=== PATIENT | female | born 1960 | race Caucasian/White ===

== ENCOUNTER 2017-09-14 08:03 | Emergency (ER) | payer OTHER ==
[~2017-09-14] VITALS: Ht 162.6 cm; Wt 72.6 kg
[~2017-09-14 08:03] MED LIST: ANIMAL CHEWS1 EACH; ANTIVERT 12.512.5 MG PO; BENTYL10 M1 PO; BENTYL20 M1 PO; CARAFATE1 GM/10 M1 PO; NEXIUM20 M1; ZOFRAN ODT4 M1 PO
--- NOTE | 2017-09-14 08:37 | ED GI/GU/ABDOMINAL COMPLAINT ---
History of Present Illness General Chief Complaint: General Adult Stated Complaint: MULTIPLE COMPLAINTS Source: patient Exam Limitations: language barrier Vital Signs & Intake/Output Vital Signs & Intake/Output Vital Signs Date Time Temp Pulse Resp B/P B/P Pulse O2 O2 Flow FiO2 Mean Ox Delivery Rate 09/14 1353 98.2 80 15 154/80 98 Room Air Room Air 09/14 1158 98.4 95 18 184/78 96 09/14 1006 84 18 163/83 99 Room Air 09/14 0856 Room Air Room Air 09/14 0807 96.0 98 20 167/100 100 Room Air Allergies Coded Allergies: acetaminophen (From TYLENOL-CODEINE) (UNKNOWN 08/15/15) codeine (From TYLENOL-CODEINE) (UNKNOWN 08/15/15) Reconcile Medications Dicyclomine Hydrochloride (Bentyl) 10 MG CAPSULE 1 CAP PO TID PRN SPASM Esomeprazole (Nexium) 40 MG CAPSULE.DR 1 CAP PO DAILY acid reflux Esomeprazole Magnesium (Nexium) (Unknown Strength) CAPSULE.DR (Unknown Dose) UNKNOWN (Reported) Multivitamin (Animal Chews) (Unknown Strength) TAB.CHEW (Unknown Dose) SUPP ( Reported) Ondansetron (Zofran Odt) 4 MG TAB.RAPDIS 1 TAB PO Q6 PRN NAUSEA Sucralfate (Carafate) 1 GM/10 ML ORAL.SUSP 10 ML PO 4 TIMES/DAY GASTRITIS 1 hour before food and bedtime Triage Note: PT TO ED C/O ANXIETY AND ABD PAIN X A FEW DAYS. C/O NAUSEA, DENIES V/D. STATES "FEEL SHAKY INSIDE". Triage Nurses Notes Reviewed? yes ? n Is pt currently ? No Onset: Abrupt Duration: day(s): (4), constant Timing: recent history Location: epigastric Radiation: no radiation Activities at Onset: none HPI: 57-year-old female comes into the emergency room for further evaluation with multiple complaints. Patient reports that she's been experiencing some epigastric discomfort. Some belching and burping. Pain radiates into her chest. She also reports some associated shortness of breath and feeling faint. She denies any vomiting fever chills cough congestion runny nose. She denies any urinary symptoms such as dysuria or increased frequency. She denies any changes in bowel movement. 2 prior C-sections and hernia repair. Nothing seems to make the symptoms better or worse. (Jarrell Will) Past History Travel History Traveled to [place] past 21 day No Medical History Any Pertinent Medical History? see below for history Gastrointestinal: GERD Psychiatric: anxiety Surgical History Surgical History: hernia repair-umbilical, VENTRAL HERNIA Psychosocial History What is your primary language Greenlandic Tobacco Use: Never used ETOH Use: denies use Illicit Drug Use: denies illicit drug use Family History Hx Contributory? No (Jarrell Will) Review of Systems Review of Systems Constitutional: Reports: see HPI. EENTM: Reports: no symptoms. Respiratory: Reports: see HPI. Cardiovascular: Reports: see HPI. GI: Reports: see HPI. Genitourinary: Reports: no symptoms. Musculoskeletal: Reports: no symptoms. Skin: Reports: no symptoms. Neurological/Psychological: Reports: no symptoms. Hematologic/Endocrine: Reports: no symptoms. Immunologic/Allergic: Reports: no symptoms. All Other Systems: Reviewed and Negative (Jarrell Will) Physical Exam Physical Exam General Appearance: well developed/nourished, alert, awake, mild distress Head: atraumatic Eyes: Bilateral: normal appearance. Ears, Nose, Throat, Mouth: hearing grossly normal, moist mucous membrane Neck: normal inspection Respiratory: no respiratory distress Cardiovascular: regular rate/rhythm Gastrointestinal: soft, tenderness (EPIGASTRIC) Back: normal inspection Extremities: normal range of motion Neurologic/Psych: awake, alert, oriented x 3, normal gait, normal mood/affect Skin: intact, normal color Core Measures ACS in differential dx? No Sepsis Present: No Sepsis Focused Exam Completed? No (Jarrell Will) Progress Differential Diagnosis: appendicitis, biliary colic, bowel obstruction, cholecystitis, diverticulitis, gastritis, hernia, hemorrhoids, ischemic bowel, inflamm bowel dis, kidney stone, ovarian cyst, ovarian torsion, pancreatitis, PID/cervicitis, peptic ulcer, PUD/GERD, perforated viscous, SBO, UTI/pyelo Plan of Care: Orders Procedure Date/time Status TROPONIN LEVEL 09/14 1210 Complete EKG 09/14 1210 Active URINALYSIS 09/14 0825 Complete TROPONIN LEVEL 09/14 0825 Complete LIPASE 09/14 0825 Complete COMPREHENSIVE METABOLIC PANEL 09/14 0825 Complete CBC WITHOUT DIFFERENTIAL 09/14 0825 Complete AMYLASE 09/14 0825 Complete EKG 04/20 0825 Active Laboratory Tests 09/14/17 1203: Troponin I < 0.01 09/14/17 0910: Urine Color YEL, Urine Clarity CLEAR, Urine pH 6.0, Ur Specific [place] 1.010, Urine Protein NEG, Urine Ketones NEG, Urine Nitrite NEG, Urine Bilirubin NEG, Urine Urobilinogen 0.2, Ur Leukocyte Esterase NEG, Ur Microscopic EXAM NOT REQUIRED, Urine Hemoglobin NEG, Urine Glucose NEG 09/14/17 0907: Anion Gap 11, Estimated GFR > 60, BUN/Creatinine Ratio 18.3, Glucose 119 H, Calcium 9.3, Total Bilirubin 0.8, AST 18, ALT 21, Alkaline Phosphatase 50, Troponin I < 0.01, Total Protein 6.9, Albumin 4.1, Globulin 2.8, Albumin/ Globulin Ratio 1.5, Amylase 43, Lipase 153, CBC w Diff NO MAN DIFF REQ, RBC 4.11 L, MCV 97.8, MCH 33.7 H, MCHC 34.5, RDW 12.2, MPV 8.3, Gran % 72.4, Lymphocytes % 22.2, Monocytes % 4.5, Eosinophils % 0.5, Basophils % 0.4, Absolute Granulocytes 3.3, Absolute Lymphocytes 1.0 L, Absolute Monocytes 0.2, Absolute Eosinophils 0, Absolute Basophils 0 Diagnostic Imaging: Viewed by Me: Radiology Read, CT Scan. Discussed w/RAD: Radiology Read, CT Scan. Initial ED EKG: normal sinus rhythm, rate (85), BORDERLINE T WAVE ABNORMALITIES Repeat EKG: unchanged Comments: PATIENT: JORDYN CASTILLO PRESENT AGE: 57 PATIENT ACCOUNT NO: [id number] : 60 LOCATION: [facility] ORDERING PHYSICIAN: Jarrell BULLARD SERVICE DATE: 09/14/17 EXAM TYPE: CAT - CT ABD & PELVIS W/O IV CONTRAS EXAMINATION: CT ABDOMEN AND PELVIS WITHOUT CONTRAST CLINICAL INFORMATION: Upper abdominal pain. COMPARISON: 02/07/2016. TECHNIQUE: Multidetector volumetric imaging was performed from the superior aspect of the liver through the pubic symphysis. Sagittal and coronal reformatted images were obtained on the technologist's workstation. DLP: 426 mGy-cm FINDINGS: Water Resources Program Director: Hernia repair mesh in the central abdomen is stable. LUNG BASES: The visualized lung bases are clear. The imaged heart and pericardium appear unremarkable. LIVER, GALLBLADDER, AND BILIARY TREE: The morphology of the liver is unchanged with a diminutive left lobe. Attenuation and contour appear normal. No hepatic lesions or biliary ductal dilatation. The gallbladder is unremarkable with no evidence of radiopaque gallstones, gallbladder wall thickening, or obvious pericholecystic inflammatory changes. PANCREAS: Unremarkable. SPLEEN: Unremarkable. ADRENAL GLANDS: Unremarkable. KIDNEYS AND URETERS: The kidneys are normal in size, shape, and attenuation. No hydronephrosis, hydroureter, or calculi seen. No perinephric stranding. Extrarenal pelvis sees in parapelvic cysts appear present bilaterally, unchanged in appearance from the prior. BLADDER: Under distended. Unremarkable. GASTROINTESTINAL TRACT: The small and large bowel are unremarkable. The appendix is unremarkable. Scattered intraluminal air within loops of small bowel suggesting incompetence of the ileocecal valve, incidentally. ABDOMINAL WALL: Hernia repair mesh deep to the rectus musculature is stable. Some loops of bowel abut the mesh repair without wall thickening or distention. The appearance is stable. LYMPH NODES: Normal. VASCULAR: Caliber of the aorta is normal. PELVIC VISCERA: Unremarkable. 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 There is a mild dextroconvex lower lumbar scoliosis with asymmetric disc osteophyte complex at L3-L4 to the left of midline. There is multilevel facet arthropathy. No acute osseous abnormalities. No evidence of spondylolyses. There is stable 1 to 2 mm of anterolisthesis of L3 on L4. IMPRESSION: 1. No acute intra-abdominal or intrapelvic pathology is visualized. 2. Stable ventral hernia mesh repair. 3. 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 Lumbar spondylosis and a lower lumbar mild dextroconvex scoliosis. DICTATED BY: Rama Hammond MD DATE/TIME DICTATED:09/14/17858 PROFESSOR OF EARLY CHILDHOOD EDUCATION:LUZ DATE/TIME TRANSCRIBED:09/14/17858 CONFIDENTIAL, DO NOT COPY WITHOUT APPROPRIATE AUTHORIZATION. <Electronically signed in Other Vendor System> SIGNED BY: Rama Hammond MD 09/14/17 0911 PATIENT: JORDYN CASTILLO PRESENT AGE: 57 PATIENT ACCOUNT NO: [id number] : 60 LOCATION: [facility] ORDERING PHYSICIAN: Jarrell BULLARD SERVICE DATE: 09/14/17 EXAM TYPE: RAD - XRY-CHEST XRAY, TWO VIEWS EXAMINATION: XR CHEST CLINICAL INFORMATION: Shortness of breath COMPARISON: None TECHNIQUE: 2 views of the chest were obtained. FINDINGS: Cardiomediastinal silhouette is within normal limits. Mild crowding of the bronchovascular structures noted in the lower lungs. No acute airspace opacity. No significant interval change compared to the previous examination. Bony thorax is intact. IMPRESSION: No acute pulmonary disease. DICTATED BY: Heidi Hassan MD DATE/TIME DICTATED:09/14/17856 PROFESSOR OF EARLY CHILDHOOD EDUCATION:LUZ DATE/TIME TRANSCRIBED:09/14/17856 CONFIDENTIAL, DO NOT COPY WITHOUT APPROPRIATE AUTHORIZATION. <Electronically signed in Other Vendor System> SIGNED BY: Heidi Hassan MD 09/14/17901 (Jarrell Will) Departure Departure Disposition: HOME OR SELF CARE Condition: Stable Clinical Impression Primary Impression: Abdominal pain Secondary Impressions: Acid reflux Referrals: Rita Jones MD (PCP/Family) Additional Instructions: Take Nexium as prescribed. Follow-up with GI doctor. Return if any concerns worsening symptoms. Please go over all results of today's visit with your primary care doctor. Contact your primary care doctor to let them know you were here in the emergency room. There may be nonspecific findings which may not be related to your visit today here in the emergency room but may require further evaluation and chronic monitoring by your primary care doctor. If you had a laceration today the chance of foreign body always remains. You should follow-up with your primary care doctor for recheck in 3-5 days for a wound check. If you had an x-ray done there is a chance that a fracture could have been missed on initial read and you should follow-up with your primary care doctor for repeat x-rays if symptoms persist. If your blood pressure was elevated here in the emergency room please have rechecked by [facility] primary care doctor within the next 48. If you were prescribed a narcotic here in the emergency room or any type of controlled substances you're not allowed to drive while taking this medication or operate any type of heavy machinery. Narcotics can make you feel lightheaded dizziness nausea and can cause constipation. You may need to coal picker a stool softener. Thank you for choosing [facility] emergency room. Please return to the emergency room immediately if you have any other concerns worsening of symptoms. Departure Forms: Customer Survey General Discharge Information Prescriptions: Current Visit Scripts Esomeprazole (Nexium) 1 CAP PO DAILY #30 CAP Comments 09/14/2017 3:29:35 PM Patient clinically looks well. Patient is no apparent distress. Patient reevaluated multiple times and emergency room. No evidence of acute [place]. Symptoms are most consistent with peptic ulcer versus gastritis versus GERD. Started back on a PPI. Symptoms improved after GI cocktail. Case discussed with Dr. Lopez. Patient understands and agrees a plan of care. Reevaluated multiple times. (Yung BULLARD,Jarrell) PA/PLAN COORDINATOR Co-Sign Statement Statement: ED Attending supervision documentation- [] I saw and evaluated the patient. I have also reviewed all the pertinent lab results and diagnostic results. I agree with the findings and the plan of care as documented in the PA's/PLAN COORDINATOR's documentation. [X] I have reviewed the ED Record and agree with the PA's/PLAN COORDINATOR's documentation. [] Additions or exceptions (if any) to the PAs/PLAN COORDINATOR's note and plan are summarized below: [] (Jessica HOSKINS,Antony Contreras)
--- NOTE | 2017-09-14 09:02 | RADIOLOGY REPORT ---
EXAMINATION: XR CHEST CLINICAL INFORMATION: Shortness of breath COMPARISON: None TECHNIQUE: 2 views of the chest were obtained. FINDINGS: Cardiomediastinal silhouette is within normal limits. Mild crowding of the bronchovascular structures noted in the lower lungs. No acute airspace opacity. No significant interval change compared to the previous examination. Bony thorax is intact. IMPRESSION: No acute pulmonary disease.
--- NOTE | 2017-09-14 09:11 | CT SCAN REPORT ---
EXAMINATION: CT ABDOMEN AND PELVIS WITHOUT CONTRAST CLINICAL INFORMATION: Upper abdominal pain. COMPARISON: 02/07/2016. TECHNIQUE: Multidetector volumetric imaging was performed from the superior aspect of the liver through the pubic symphysis. Sagittal and coronal reformatted images were obtained on the technologist's workstation. DLP: 426 mGy-cm FINDINGS: Artist Consultant: Hernia repair mesh in the central abdomen is stable. LUNG BASES: The visualized lung bases are clear. The imaged heart and pericardium appear unremarkable. LIVER, GALLBLADDER, AND BILIARY TREE: The morphology of the liver is unchanged with a diminutive left lobe. Attenuation and contour appear normal. No hepatic lesions or biliary ductal dilatation. The gallbladder is unremarkable with no evidence of radiopaque gallstones, gallbladder wall thickening, or obvious pericholecystic inflammatory changes. PANCREAS: Unremarkable. SPLEEN: Unremarkable. ADRENAL GLANDS: Unremarkable. KIDNEYS AND URETERS: The kidneys are normal in size, shape, and attenuation. No hydronephrosis, hydroureter, or calculi seen. No perinephric stranding. Extrarenal pelvis sees in parapelvic cysts appear present bilaterally, unchanged in appearance from the prior. BLADDER: Under distended. Unremarkable. GASTROINTESTINAL TRACT: The small and large bowel are unremarkable. The appendix is unremarkable. Scattered intraluminal air within loops of small bowel suggesting incompetence of the ileocecal valve, incidentally. ABDOMINAL WALL: Hernia repair mesh deep to the rectus musculature is stable. Some loops of bowel abut the mesh repair without wall thickening or distention. The appearance is stable. LYMPH NODES: Normal. VASCULAR: Caliber of the aorta is normal. PELVIC VISCERA: Unremarkable. 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 There is a mild dextroconvex lower lumbar scoliosis with asymmetric disc osteophyte complex at L3-L4 to the left of midline. There is multilevel facet arthropathy. No acute osseous abnormalities. No evidence of spondylolyses. There is stable 1 to 2 mm of anterolisthesis of L3 on L4. IMPRESSION: 1. No acute intra-abdominal or intrapelvic pathology is visualized. 2. Stable ventral hernia mesh repair. 3. 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 Lumbar spondylosis and a lower lumbar mild dextroconvex scoliosis.
[2017-09-14 09:16] LABS: ABSOLUTE BASOPHIL COUNT 0 /CUMM (0.0-0.2); ABSOLUTE EOSINOPHIL COUNT 0 /CUMM (0.0-0.7); ABSOLUTE GRANULOCYTE CT 3.3 /CUMM (1.4-6.5); ABSOLUTE MONOCYTE COUNT 0.2 /CUMM (0.10-0.60); BASOPHIL % 0.4 % (0.0-2.0); EOSINOPHIL % 0.5 % (0-5); GRANULOCYTE % 72.4 % (42.2-75.2); HEMATOCRIT 40.3 % (37-47); MEAN CORPUSCULAR HGB 33.7 PG (27.0-31.0); MEAN CORPUSCULAR HGB CONC 34.5 G/DL (33.0-37.0); MEAN CORPUSCULAR VOLUME 97.8 FL (81.0-99.0); MEAN PLATELET VOLUME 8.3 FL (7.4-10.4); PLATELET COUNT 158 /CUMM (130-400); RBC DISTRIBUTION WIDTH 12.2 % (11.5-14.5); RED BLOOD CELL CT 4.11 /CUMM (4.20-5.40); WHITE BLOOD CELL COUNT 4.5 /CUMM (4.8-10.8)
[2017-09-14] MEDS ORDERED: NEXIUM40 M1 PO (12:46)
[2017-09-14 13:53] VITALS: BP 154/80
== END 2017-09-14 13:39 ==
LOC: ERH 08:03
PROVIDERS: Physician Assistant Medical
DX: K21.9 Gastro-esophageal reflux disease without esophagitis (principal)
CPT/HCPCS: 71046; 74176; 81003; 93005; 93010